=== PATIENT | male | born 1995 | race Hispanic/Latino ===

== ENCOUNTER 2018-02-28 20:50 | Emergency (ER) | payer SELFPAY ==
[2018-02-28 22:00] LABS: APPEARANCE,URINE Clear (CLEAR); BILIRUBIN,URINE Negative (NEGATIVE); COLOR,URINE Dark Yellow (YELLOW); GLUCOSE, URINE (UA) Negative (NEGATIVE); KETONES,URINE Trace mg/dL (NEGATIVE); LEUKOCYTE ESTERASE ,URINE Negative (NEGATIVE); NITRATE,URINE Negative (NEGATIVE); OCCULT BLOOD,URINE Negative (NEGATIVE); PH,URINE 5.5 (5.0-8.0); PROTEIN,URINE Negative (NEGATIVE)
[2018-02-28] MEDS ORDERED: CLINDAMYCIN HCL 150 MG CAP ONE (22:01)
== END 2018-02-28 22:19 | disposition home or self-care (01) ==
LOC: EDH 20:50
DX: L02.215 Cutaneous abscess of perineum (principal); Z72.0 Tobacco use
CPT/HCPCS: 76882; 81003; 87486; 87797